=== PATIENT | female | born 1955 | race Native Hawaiian/Other Pacific Islander ===

== ENCOUNTER 2017-10-04 04:00 | Emergency (ER) | payer OTHER ==
[2017-10-04 04:00] VITALS: BMI 21.7
[2017-10-04 04:47] VITALS: O2SAT 100
[2017-10-04] MEDS ORDERED: Sodium Chloride 0.9% 1,000 ML IV ONE (04:56)
--- NOTE | 2017-10-04 05:12 | C.PDOC ---
History Of Present Illness 62 year old female presents to the ER via EMS with a complaint of dizziness, abdominal pain, and generalized malaise. Patient states she is prepping for a colonoscopy today and since then he has had several episodes of diarrhea. Denies rectal bleeding or syncope. Time Seen by Provider: 10/04/17 04:24 Chief Complaint (Nursing): Abdominal Pain History Per: Patient History/Exam Limitations: no limitations Onset/Duration Of Symptoms: Hrs Current Symptoms Are (Timing): Still Present Location Of Pain/Discomfort: Diffuse Radiation Of Pain To:: None Quality Of Discomfort: Unable To Describe Associated Symptoms: Diarrhea, Other (Abdominal pain, dizziness, malaise). denies: Fever, Chills Exacerbating Factors: None Alleviating Factors: None Recent travel outside of the [place]: No Abnormal Vaginal Bleeding: No Past Medical History Reviewed: Historical Data, Nursing Documentation, Vital Signs Vital Signs: Last Vital Signs Temp Pulse 80 10/04/17 06:23 Resp 18 10/04/17 06:23 BP 101/52 L 10/04/17 06:23 Pulse Ox 100 10/04/17 06:29 Family History: States: Unknown Family Hx - Social History Hx Alcohol Use: No Hx Substance Use: No Review Of Systems Constitutional: Positive for: Weakness, Malaise. Negative for: Fever, Chills Gastrointestinal: Positive for: Diarrhea. Negative for: Other (Rectal bleed) Skin: Positive for: Other (Pale) Neurological: Positive for: Dizziness. Negative for: Other (Syncope) Physical Exam - Physical Exam Appears: Non-toxic Skin: Warm, Dry, Pale Head: Atraumatic, Normacephalic Eye(s): bilateral: Normal Inspection Oral Mucosa: Moist Chest: Symmetrical, No Tenderness Cardiovascular: Rhythm Regular Respiratory: Normal Breath Sounds, No Rales, No Rhonchi, No Wheezing Gastrointestinal/Abdominal: Soft, No Tenderness Neurological/Psych: Oriented x3, Normal Speech ED Course And Treatment - Laboratory Results Result Diagrams: 10/04/17 04:59 10/04/17 04:59 ECG: Interpreted By Me, Viewed By Me ECG Rhythm: Sinus Rhythm Interpretation Of ECG: No acute ST/T changes Rate From EC O2 Sat by Pulse Oximetry: 100 (Room air) Pulse Ox Interpretation: Normal Progress Note: Blood work ordered, results were negative. Pepcid and IV fluids administered. Labs reviewed and all wnl. On reevaluation, patient reports improvement of symptoms and is resting comfortably in the ER in no distress. Pt will be discharged an advised to keep appointment for colonoscopy- pt will go now to prescreenin area. Return precautions were d/w pt. Disposition - Disposition Referrals: Deon Soni [Staff Provider] - Disposition: HOME/ ROUTINE Disposition Time: 06:25 Condition: STABLE Additional Instructions: Please keep appointment for prescreening for Colonoscopy today Return to ER if worse Instructions: Gastritis (ED) Forms: [employer]oco Controller (Bulgarian) - Clinical Impression Clinical Impression: Diarrhea, Gastritis - PA / PULLER OVER / Resident Statement MD/DO has reviewed & agrees with the documentation as recorded. - Scribe Statement The provider has reviewed the documentation as recorded by the Scribke Beltrán All medical record entries made by the Grahamibke were at my direction and personally dictated by me. I have reviewed the chart and agree that the record accurately reflects my personal performance of the history, physical exam, medical decision making, and the department course for this patient. I have also personally directed, reviewed, and agree with the discharge instructions and disposition.
[2017-10-04 05:14] LABS: ALB/GLOB RATIO 1.3 (1.0-2.1); ALBUMIN 4.6 g/dL (3.5-5.0); ALT/SGPT 42 U/L (9-52); AST/SGOT 39 U/L (14-36); BLOOD UREA NITROGEN 10 mg/dL (7-17); CALCIUM 8.8 mg/dl (8.6-10.4); GFR AFRICAN-AMERICAN > 60; GFR NON-AFRICAN AMERICAN > 60
[2017-10-04 05:20] LABS: BASO % 0.5 % (0.0-2.0); EOS # 0.1 K/uL (0.0-0.7); EOS % 1.1 % (0.0-4.0); HEMOGLOBIN 15.4 g/dL (11.0-16.0); LYMPH # 1.9 K/uL (1.0-4.3); MEAN CELL VOLUME 88.4 fL (81.0-99.0); MEAN CORPUSCULAR HEMOGLOBIN 29.6 pg (27.0-31.0); MEAN CORPUSCULAR HGB CONC 33.4 g/dL (33.0-37.0); MEAN PLATELET VOLUME 8.2 fL (7.2-11.7); MONO # 0.4 K/uL (0.0-0.8); MONO % 4.6 % (0.0-10.0); NEUT # 6.7 K/uL (1.8-7.0); NEUT % 72.8 % (50.0-75.0); NRBC % 0.3 % (0.0-2.0); RBC 5.23 Mil/uL (3.80-5.20); RED CELL DISTRIBUTION WIDTH 13.5 % (11.5-14.5); WHITE BLOOD COUNT 9.3 K/uL (4.8-10.8)
[2017-10-04 06:24] VITALS: BP 101/52; PULSE 80; RESP 18
--- NOTE | 2017-10-06 12:21 | CARD ---
APPROVED REPORT EKG Measurement Heart [id number] <Conclusion> Sinus rhythm with 1st degree AV block Possible Left atrial enlargement Borderline ECG
== END 2017-10-04 06:40 | disposition home or self-care (01) ==
LOC: C.ER 04:00
DX: K29.70 Gastritis, unspecified, without bleeding (principal); R19.7 Diarrhea, unspecified
CPT/HCPCS: 80053; 85025; 96361; 96374; 99285; J7040

== ENCOUNTER 2017-10-04 07:06 | Day surgery (SDC) | payer OTHER ==
[2017-10-04 07:33] VITALS: BMI 21.9
[2017-10-04] MEDS ORDERED: Propofol 10 mg/ml Inj (20 ML) ONE (09:25)
--- NOTE | 2017-10-04 09:30 | CP.SDSHP ---
Same Day Surgery H & P - History Proposed Procedure: COLONSCOPY Pre-Op Diagnosis: SEE NOTES - Previous Medical/Surgical History Neuro: Other Misc: Other Pain: 4.Moderate Pain - Allergies Allergies: Allergies No Known Allergies Allergy (Verified 06/27/15 12:56) - Physical Exam General Appearance: N Vital Signs: Vital Signs 10/04/17 08:20 Temperature 97 F L Pulse Rate 80 Respiratory 20 Rate Blood Pressure 105/52 L O2 Sat by Pulse 100 Oximetry Mental Status: Alert & Oriented x3 Neuro: WNL Heart: WNL Lungs: WNL GI: Other - {Optional Preform as Required} Breast: WNL Abdomen: Other Rectal: Other Integument: WNL : WNL Ortho: WNL ENT: WNL - Impression Pt. Evaluated Today:Candidate for Anesthesia & Procedure: Yes - Date & Time Time: 09:30 Short Stay Discharge - Short Stay Discharge Admitting Diagnosis/Reason for Visit: RECTAL BLEEDING Disposition: HOME/ ROUTINE
[2017-10-04] MEDS ORDERED: Belladonna-Phenobarbital PO ONE (10:00)
[2017-10-04 10:59] VITALS: TEMP 98
[2017-10-04 11:03] VITALS: RESP 20; O2SAT 100
[2017-10-04 11:11] VITALS: BP 115/70; PULSE 82
== END 2017-10-04 11:00 | disposition home or self-care (01) ==
LOC: C.ENDO 07:06
PROVIDERS: ATTEND Specialist
DX: K62.5 Hemorrhage of anus and rectum (principal); K64.8 Other hemorrhoids; K60.2 Anal fissure, unspecified
CPT/HCPCS: 45380; 88305; J2704